=== PATIENT | male | born 1985 | race Hispanic/Latino ===

== ENCOUNTER 2025-01-06 07:52 | Emergency (ER) | payer SELFPAY ==
[~2025-01-06] VITALS: Ht 167.6 cm; Wt 93.4 kg
[2025-01-06 08:33] LABS: BASOPHILS # (AUTO) 0.04 K/uL (0.00-0.20); BASOPHILS % (AUTO) 0.3 % (0.0-5.0); EOSINOPHILS # (AUTO) 0.02 K/uL (0.00-0.70); EOSINOPHILS % (AUTO) 0.2 % (0.0-8.0); HEMATOCRIT 46.3 % (42-54); IMMATURE GRANULOCYTE ABSOLUTE 0.05 K/uL (0-1); LYMPHOCYTES # (AUTO) 1.3 K/uL (1.0-4.8); LYMPHOCYTES % (AUTO) 10.2 % (21.0-51.0); MEAN CORPUSCULAR HEMOGLOBIN 31.6 pg (27.0-33.0); MEAN CORPUSCULAR HGB CONC 36.1 g/dL (32.0-36.0); MEAN CORPUSCULAR VOLUME 87.5 fL (79-99); MONOCYTES # (AUTO) 0.3 K/uL (0.1-1.0); MONOCYTES % (AUTO) 2.6 % (3.0-13.0); NEUTROPHILS # (AUTO) 11.1 K/uL (1.8-7.7); NEUTROPHILS % (AUTO) 86.3 % (40.0-77.0); PLATELET COUNT (AUTO) 319 K/uL (130-400); RED BLOOD CELL COUNT(AUTO) 5.29 MIL/uL (4.50-6.20); RED CELL DISTRIBUTION WIDTH 12.9 % (11.0-15.5); WHITE BLOOD COUNT (AUTO) 12.9 K/uL (4.8-10.8)
[2025-01-06 08:34] LABS: POTASSIUM 3.7 mmol/L (3.5-5.1)
--- NOTE | 2025-01-06 08:36 | ERN ---
General Chief Complaint: Flank Pain Stated Complaint: RT FLANK PAIN Time Seen by MD: 07:59 History of Present Illness Initial Comments 39-year-old male, history of hypertension, subclinical hyperthyroidism, history of kidney stones, presents for right-sided colicky abdominal pain and vomiting. Patient reports last night about 12 hours ago he felt some pressure in the right groin, with a bit of abdominal pain. He took ibuprofen and the symptoms resolved. He woke up this morning a few hours ago with severe pain in the right flank that radiates in the right groin. He was vomited multiple times. No abdominal tenderness. He was not eaten today. Denies surgical history. Denies fevers, hematuria melena, dysuria, bulges to testicles, testicular tenderness Allergies: Coded Allergies: No Known Allergies (Unverified Allergy, Unknown, 01/06/25) Past Medical History Past Medical History: Hypertension, Hyperthyroid, Kidney Stone Past Surgical History: Other ROS Dictation CONSTITUTIONAL: No chills, no fever, no weakness, no diaphoresis, no malaise. HEAD/FACE: No signs of trauma. EENT: No eye pain, no blurred vision, no tearing, no double vision, no ear pain, no ear discharge, no nose pain, no nasal congestion, no throat pain, no throat swelling, no mouth pain. RESPIRATORY: No cough, no orthopnea, no SOB, no stridor, no wheezing. CARDIOVASCULAR: No chest pain, no edema, no palpitations, no syncope. GASTROINTESTINAL/ABDOMINAL: Right flank pain GENITOURINARY: No abnormal discharge, no dysuria, no frequent urination, no hematuria. No complaints of pain in the genitals. MUSCULOSKELETAL: No back pain, no gout, no joint pain, no joint swelling, no muscle pain, no muscle stiffness, no neck pain. INTEGUMENTARY: No change in color, no change in hair/nails, no dryness, no lesion, no lumps, no rash. NEUROLOGICAL/PSYCH: No anxiety, not depressed, no emotional problem, no headache, no numbness, no pre-existing deficit, no history of seizures, no tremors, no weakness. HEMATOLOGIC/LYMPHATIC: Not anemic, no history of blood clots, no apparent bleeding, no bruising, glands not swollen. All Systems Negative, Except as Noted. Physical Exam Physical Exam Dictation VITAL SIGNS: Reviewed. GENERAL APPEARANCE: Alert, oriented x3, moderate distress due to pain HEAD AND FACE: Non-traumatic. EYES: PERRL, pink conjunctivas, eyelid no trauma, anterior chamber clear. EARS: Pinnas intact and no signs of trauma or erythema. Ear canals clear and no discharge. TMs no erythema. NOSE: No discharge, no bleeding. OROPHARYNX: Mouth normal, teeth no caries, tongue pink. Pharynx clear, no erythema. Tonsils no exudates, no abscesses noted. Mucous membrane moist. NECK: Supple, non-tender, no thyromegaly, no masses, no JVD, no bruits. BREAST: Deferred. CHEST: No tenderness, no crepitus, no paradoxical movement, no retractions. LUNGS: Clear, well-ventilated, symmetric, no rales, no wheezing, no rhonchi, no stridor, good breath sounds bilaterally. HEART: Regular rate, regular rhythm, no murmur, no gallops. VASCULAR: No peripheral edema. ABDOMEN: Soft, positive bowel sounds, nondistended, no guarding, nontender, no rebound, no masses no hepatomegaly, no splenomegaly, no Gee's sign, no hernias. RECTAL: Deferred. GENITAL: Deferred. NEUROLOGICAL: Normal speech, gross motor function intact, gross sensory function intact. MUSCULOSKELETAL: Neck nontender, full range of motion, back nontender, full range of motion. EXTREMITIES: Nontender, full range of motion. SKIN: Color pink, dry, no turgor, no rash, no lacerations, no abrasions, no contusions. LYMPHATICS: Deferred. Results Laboratory and Microbiology Lab and Micro Result Laboratory Tests Test 01/06/25 08:17 01/06/25 08:30 White Blood Count 12.9 K/uL (4.8-10.8) H Red Blood Count 5.29 MIL/uL (4.50-6.20) Hemoglobin 16.7 g/dL (14.0-18.0) Hematocrit 46.3 % (42-54) Mean Corpuscular Volume 87.5 fL (79-99) Mean Corpuscular Hemoglobin 31.6 pg (27.0-33.0) Mean Corpuscular Hemoglobin Concent 36.1 g/dL (32.0-36.0) H Red Cell Distribution Width 12.9 % (11.0-15.5) Platelet Count 319 K/uL (130-400) Mean Platelet Volume 11.4 fL (7.5-10.5) H Immature Granulocyte % (Auto) 0.4 % (0-1) Neutrophils (%) (Auto) 86.3 % (40.0-77.0) H Lymphocytes (%) (Auto) 10.2 % (21.0-51.0) L Monocytes (%) (Auto) 2.6 % (3.0-13.0) L Eosinophils (%) (Auto) 0.2 % (0.0-8.0) Basophils (%) (Auto) 0.3 % (0.0-5.0) Neutrophils # (Auto) 11.1 K/uL (1.8-7.7) H Lymphocytes # (Auto) 1.3 K/uL (1.0-4.8) Monocytes # (Auto) 0.3 K/uL (0.1-1.0) Eosinophils # (Auto) 0.02 K/uL (0.00-0.70) Basophils # (Auto) 0.04 K/uL (0.00-0.20) Absolute Immature Granulocyte (auto 0.05 K/uL (0-1) Nucleated Red Blood Cells 0.0 % (0.0-0.19) Sodium Level 134 mmol/L (136-145) L Potassium Level 3.7 mmol/L (3.5-5.1) Chloride Level 97 mmol/L (101-111) L Carbon Dioxide Level 24 mmol/L (21-32) Blood Urea Nitrogen 7 mg/dL (7-18) Creatinine 1.0 mg/dL (0.5-1.3) Glomerular Filtration Rate Calc 99 mL/min (>90) Random Glucose 105 mg/dL (70-105) Total Calcium 8.9 mg/dL (8.5-10.1) Urine Color COLORLESS (YELLOW) Urine Appearance CLEAR (CLEAR) Urine pH 7.5 (5.0-8.0) Urine Specific [place] 1.008 (1.001-1.031) Urine Protein NEGATIVE mg/dL (NEGATIVE) Urine Glucose (UA) NEGATIVE mg/dL (NEGATIVE) Urine Ketones 5 mg/dL (NEGATIVE) H Urine Occult Blood +- (TRACE) (NEGATIVE) H Urine Nitrate NEGATIVE (NEGATIVE) Urine Bilirubin NEGATIVE mg/dL (NEGATIVE) Urine Urobilinogen 0.2 mg/dL (0.2-1.0) Urine Leukocyte Esterase NEGATIVE [place]/uL Urine RBC 6-10 /HPF (0-1) H Urine WBC 0-1 /HPF (0-1) Urine Bacteria None /HPF (None Seen) MDM CC: right flank pain, vomiting Historian: Patient Comorbidities: Obesity, subclinical hyperthyroidism, hypertension, previous kidney stones Differential diagnosis: Renal colic, SIRS, sepsis, testicular pathology, appendicitis, other. Vital signs are stable Labs (independently ordered and interpreted by me): Mild leukocytosis WBCs 12.9, left shift. No bands. Chemistry panel normal. Kidney function normal. Urinalysis shows blood, no signs of infection no nitrites or bacteria. CT scan of the abdomen and pelvis without contrast (independently interpreted by me ): Right-sided hydronephrosis, some stranding/irritation of the right kidney. Stone at the UVJ, approximately 6 mm. Treatment in ED. 1 L normal saline, 15 mg IV Toradol, on re-evaluation patient was still in pain, given 1 mg of IV Dilaudid. Re-evaluation: Pain controlled. No longer vomiting. No signs of SIRS or sepsis, no signs of infection, pain controlled, no vomiting, no signs of dehydration. Stable for discharge. Plan: We will DC with tamsulosin, Cass tabs, ibuprofen, Zofran, urology follow up. ED Course Orders Procedure Category Date Status Time Vital Signs Per CPOE 01/06/25 Transmitted Routine 08:13 Strain All Urine CPOE 01/06/25 Transmitted Output From 08:13 Cbc With Differential LAB 01/06/25 In Process 08:13 Saline Lock Iv CPOE 01/06/25 Transmitted 08:13 Basic Metabolic Panel LAB 01/06/25 Complete 08:13 Urinalysis Profile LAB 01/06/25 Complete 08:13 Ct Abdomen/Pelvis W/O CT 01/06/25 Resulted Contrast 08:19 Ketorolac PHA 01/06/25 Complete Tromethamine 15mg/Ml 08:30 0.9%Nacl 1000ml (Ns PHA 01/06/25 Complete 1000ml) 08:30 Hydromorphone 1 Mg PHA 01/06/25 Complete Inj (Dilaudid 1mg Inj 09:00 Current Medications Medications (Trade) Dose Ordered Sig/Floridalma Route PRN Reason Start Time Stop Time Status Last Admin Dose Admin Hydromorphone HCl (DiLAUDid 1MG INJ) 1 mg ONCE ONCE IVP 01/06/25 09:00 01/06/25 09:01 DC 01/06/25 09:07 Ketorolac Tromethamine (toRADol) 15 mg ONCE ONCE IV 01/06/25 08:30 01/06/25 08:31 DC 01/06/25 08:39 Sodium Chloride 1,000 ml @ 0 mls/hr ONCE ONCE IV 01/06/25 08:30 01/06/25 08:31 DC 01/06/25 08:40 Vital Signs Date Time Temp Pulse Resp B/P (MAP) Pulse Ox O2 Delivery O2 Flow Rate FiO2 01/06/25 07:56 98.4 87 20 131/109 99 Room Air DX & DISP Disposition: Discharge Departure Impression: Primary Impression: Right nephrolithiasis Condition: Stable Scripts Tamsulosin HCl (Flomax) 0.4 Mg Cap.er.24h 0.4 MG PO DAILY for 30 Days, #30 CAPSULE.DR Prov: ZAN ELIZABETH DO 01/06/25 Ondansetron (Ondansetron Odt) 4 Mg Tab.rapdis 1 TAB PO Q6HPRN PRN for nausea/vomiting for 3 Days, #9 TAB 0 Refills Prov: ZAN ELIZABETH DO 01/06/25 Ibuprofen (Ibuprofen 800 mg Tab) 800 Mg Tab 800 MG PO Q6H PRN for PAIN, #30 TAB Prov: ZAN ELIZABETH DO 01/06/25 Hydrocodone/Acetaminophen (Hydrocodon-Acetaminophen 5-325) 5 Mg-325 Mg Tablet 1 TAB PO QID PRN for pain for 5 Days, #20 TAB 0 Refills Prov: ZAN ELIZABETH DO 01/06/25 Additional Instructions: You have a 6 mm kidney stone on the right side which is causing symptoms. Your vital signs have been stable. Your blood work (CBC, BMP, urinalysis) is unremarkable. I have prescribed tamsulosin, which will help expel the kidney stone. Take this once nightly until you pass the stone. For pain I have prescribed you both 800 mg ibuprofen tabs and Cass tabs. You can alternate these medications every 4 hours as needed for pain or discomfort. I have prescribed ondansetron dissolvable tabs to use as needed for nausea and vomiting. You did not have to take this medication unless needed. I recommend that you follow up with the urologist. I have given you a referral to Dr. Espinal. Call for an appointment. You can also contact the [facility] for a office visit. Please return to the emergency department if you have any high fevers, persistent vomiting, significant pain, or any other concerning symptoms. Referrals: SELF,REFERRAL (PCP) FRANCE ESPINAL MD, RYAN E DO Jan 06, 2025 08:36
[2025-01-06] MEDS: ketOROlac 15MG/ML VIAL (15MG/ML) IV ONE (08:39)
[2025-01-06] MEDS: 0.9%NACL 1000ML 1,000 ML IV ONE (08:40)
[2025-01-06] MEDS: hydroMORPHone 1 MG INJ IVP ONE (09:07)
--- NOTE | 2025-01-06 09:08 | HMCIMG ---
CT ABDOMEN PELVIS WITHOUT CONTRAST Clinical Information: r/o kidney stone Comparison: CT Dose Index (CTDI): 28.40 mGy Dose Length Product (DLP): 1536.00 total mGy-cm PROTOCOL: Routine noncontrast helical scanning of the abdomen and pelvis was performed at 5mm collimation. Findings: There is a Right ureterovesical junction calculus measuring 6 mm causing [id number] hydroureteronephrosis. The contralateral kidney is unremarkable. The lung bases are clear. The stomach is unremarkable. It shows no wall thickening. No gross ulceration is seen. It is not overly distended. There are no surrounding inflammatory changes. No wall lesions are identified to suggest cancer. The spleen is unremarkable. It is not enlarged. The pancreas shows normal anatomy. It is not fatty replaced. It shows no lesions. The pancreatic duct is not dilated. The gallbladder is unremarkable. It shows no cholelithiasis. The gallbladder wall is normal in thickness. There is no pericholecystic fluid. The is no acute or chronic inflammation noted. The adrenal glands are unremarkable. There is no enlargement. No lesions are noted. The liver is unremarkable. It shows no focal masses. The appendix is unremarkable. It shows no evidence of inflammation. No appendicolith is seen. The small bowel is unremarkable. There is no evidence of dilatation to suggest obstruction. No evidence of adynamic ileus is seen. There is no small bowel wall thickening to suggest enteritis. The colon is unremarkable. The urinary bladder is unremarkable. There is no wall thickening to suggest tumor or inflammation. There are no intraluminal calculi. There are no diverticula. There is no evidence of chronic bladder outlet obstruction. There is no evidence of urinary bladder distention to suggest urinary retention. The other pelvic structures are unremarkable. The bony and vascular structures are unremarkable for the patient's age. IMPRESSION: Urinary tract calculus causing obstruction. This study was performed using dose reduction techniques to include automated exposure control and/or adjustment of the mA and/or kV according to patient size.
[2025-01-06 09:29] LABS: APPEARANCE,URINE CLEAR (CLEAR); BILIRUBIN,URINE NEGATIVE (NEGATIVE); COLOR,URINE COLORLESS (YELLOW); GLUCOSE, URINE (UA) NEGATIVE (NEGATIVE); KETONES,URINE 5 mg/dL (NEGATIVE); LEUKOCYTE ESTERASE ,URINE NEGATIVE Leu/uL (NEGATIVE); NITRATE,URINE NEGATIVE (NEGATIVE); PH,URINE 7.5 (5.0-8.0); PROTEIN,URINE NEGATIVE (NEGATIVE); UROBILINOGEN,URINE 0.2 mg/dL (0.2-1.0)
[2025-01-06 09:51] LABS: ADD UA MICROSCOPIC YES
[2025-01-06 09:53] LABS: WBC,URINE 0-1 /HPF (0-1)
[2025-01-06] MEDS ORDERED: HYDR-4060 PO (10:03)
[2025-01-06] MEDS ORDERED: TAMS-1 PO (10:03)
[2025-01-06] MEDS ORDERED: IBUP-2077 PO (10:03)
[2025-01-06] MEDS ORDERED: ONDA-243 PO (10:03)
[2025-01-06 10:27] VITALS: BP 128/92; PULSE 80; RESP 20; TEMP 98.5; O2SAT 99
[2025-01-06] MEDS: ketOROlac 15MG/ML VIAL (15MG/ML) IM ONE (10:38)
== END 2025-01-06 10:30 | disposition home or self-care (01) ==
LOC: EEVIPCON 07:52 → EDH 07:52
DX: N20.0 Calculus of kidney (principal); E66.9 Obesity, unspecified; I10 Essential (primary) hypertension
CPT/HCPCS: 99285; 74176; 96374; 96361; 96375; 80048; 85025; 81001; 36415; 96372; J1885 ×2; J1171; J7030